=== PATIENT | female | born 1950 | race Caucasian/White ===

== ENCOUNTER 2017-11-12 09:46 | Emergency (ER) | payer BC, MEDICARE ==
[~2017-11-12] VITALS: Ht 152.4 cm; Wt 63.0 kg
[~2017-11-12 09:46] MED LIST: AMBI12.5 PO; AMOX500T PO; ARMO90TA PO; DIOV160T60 PO; HYDR12.56 PO; JANUMET PO; LORA-474 PO; LOVAZA PO; METFORMIN PO; METHTAB3 PO; MONT10TA2 PO; OYST500T77 PO; PROG1CAP21 PO; VITA400C28 PO; [UNRECOGNIZED DRUG - OTHER] SQ; [UNRECOGNIZED DRUG - REMARK] PO
[2017-11-12 09:48] VITALS: BP 124/59; PULSE 84; RESP 18; TEMP 98.1; O2SAT 97
[2017-11-12] MEDS ORDERED: LORA0.5T PO (10:18)
[2017-11-12] MEDS ORDERED: LISI2.5T3 PO (10:18)
[2017-11-12] MEDS ORDERED: [UNRECOGNIZED DRUG - OTHER] (10:18)
[2017-11-12] MEDS ORDERED: [UNRECOGNIZED DRUG - OTHER] (10:18)
[2017-11-12] MEDS ORDERED: ACETAMINOPHEN 500 MG CPLT PO ONE (10:45)
--- NOTE | 2017-11-12 11:05 | PD ---
HPI Chief Complaint: Musculoskeletal Complaint Time Seen by Provider: 10:26 Travel History International Travel<30 days: No Contact w/Intl Traveler<30days: No Traveled to known affect area: No History of Present Illness HPI Patient 67-year-old female presents emerged right hip pain after fall, she states is quite painful to weight on it. She has got point where it is extremely painful since decided to come in and be seen. Denies any injury to head neck back chest abdomen or other extremity. Symptoms happened a few hours prior to arrival, right hip, no radiation, associated signs symptoms as above. PFSH Past Medical History Asthma: Yes Blood Disorders: No Anxiety: Yes Cancer: No Cardiovascular Problems: Yes COPD: Yes Diabetes: Yes Patient Takes Glucophage: No Diminished Hearing: No Genitourinary: No Hypertension: Yes Immune Disorder: No Reproductive: No Thyroid Disease: Yes Tetanus Vaccination: > 5 Years ?: Not Menopausal: Yes Past Surgical History Cholecystectomy: Yes Social History Alcohol Use: No Tobacco Use: No Substance Use: No Allergies-Medications (Allergen,Severity, Reaction): Coded Allergies: No Known Allergies (Verified Allergy, Mild, 11/12/17) Reported Meds & Prescriptions Reported Meds & Active Scripts Active Reported Lorazepam 0.5 Mg Tab 0.5 Mg PO DAILY PRN Lisinopril 2.5 Mg Tab 1 Mg PO DAILY [Zalpedra] Unknown Dose [X Duo] Unknown Dose Review of Systems Except as stated in HPI: all other systems reviewed are Neg Physical Exam Narrative GENERAL: Well-nourished, well-developed patient. SKIN: Focused skin assessment warm/dry. HEAD: Normocephalic. Atraumatic EYES: No scleral icterus. No injection or drainage. NECK: Supple, trachea midline. No JVD or lymphadenopathy. CARDIOVASCULAR: Regular rate and rhythm without murmurs, gallops, or rubs. RESPIRATORY: Breath sounds equal bilaterally. No accessory muscle use. GASTROINTESTINAL: Abdomen soft, non-tender, nondistended. MUSCULOSKELETAL: No cyanosis, or edema. Minimal tenderness about the right greater trochanter, there is no tenderness on internal and external rotation, shortening, these are atraumatic, contralateral hip atraumatic, pulses motor and sensory intact distally in all [address] or L-spine tenderness. BACK: Nontender without obvious deformity. No CVA tenderness. Data Data Last Documented VS Vital Signs Date Time Temp Pulse Resp B/P (MAP) Pulse Ox O2 Delivery O2 Flow Rate FiO2 11/12/17 11:48 11/12/17 11:07 81 16 97 Room Air 11/12/17 09:48 98.1 Orders Orders Hip, Uni(Ap&Lat) W Ap Pelvis (11/12/17 ) Acetaminophen (Tylenol) (11/12/17 10:45) Ed Discharge Order (11/12/17 11:31) MDM Medical Decision Making Medical Screen Exam Complete: Yes Emergency Medical Condition: Yes Differential Diagnosis Hip contusion, sprain, fracture, pelvic fracture Narrative Course Patient roomed in emergency department, given Tylenol and she did not want anything stronger, x-ray of the hip shows no fracture, she is able to ambulate in the emergency department. Discussed symptomatic management returned ED criteria follow-up with primary care physician. She stable for discharge. patient had a mechanical fall by her description and has not had any syncope. Diagnosis Primary Impression: Right hip pain Patient Instructions: General Instructions, RICE Therapy (ED) Disposition: 01 DISCHARGE HOME Condition: Stable Devin Pollock MD Nov 12, 2017 11:05
[2017-11-12 11:07] VITALS: BP 106/48; PULSE 81; RESP 16; O2SAT 97
--- NOTE | 2017-11-12 11:31 | RADRPT ---
EXAM DATE/TIME: 11/12/2017 10:53 [facility] COMPARISON: No previous studies available for comparison. INDICATIONS : Fell this AM, has right hip area pain, unable to walk MEDICAL HISTORY : Diabetes mellitus type II. SURGICAL HISTORY : spinal ENCOUNTER: Initial ACUITY: 1 day PAIN SCORE: 9/10 LOCATION: Right hip FINDINGS: 3 views right hip and pelvis. Bone alignment within normal limits. No evidence of fracture. No evide nce of joint narrowing. CONCLUSION: No evidence of fracture. Priyank Donnelly MD on November 12, 2017 at 11:28 Board Certified Radiologist. This report was verified electronically.
== END 2017-11-12 12:00 | disposition home or self-care (01) ==
LOC: PHED 09:46
DX: M25.551 Pain in right hip (principal); J44.9 Chronic obstructive pulmonary disease, unspecified; E11.9 Type 2 diabetes mellitus without complications; I10 Essential (primary) hypertension
CPT/HCPCS: 73502; 99283